=== PATIENT | male | born 1990 | race Caucasian/White ===

== ENCOUNTER 2016-11-10 08:42 | Emergency (ER) | payer OTHER ==
[2016-11-10 10:09] LABS: HEMOGLOBIN 15.3 gm/dl (14.0-17.5); RED BLOOD COUNT 4.95 M/UL (4.20-5.50); WHITE BLOOD COUNT 10.2 K/UL (4.5-11.0)
[2016-11-10 10:39] LABS: BUN/CREATININE RATIO 14 (0-10)
== END 2016-11-10 13:52 | disposition home or self-care (01) ==
LOC: ER1 08:42
PROVIDERS: Physician Assistant
DX: S01.01XA Laceration without foreign body of scalp, initial encounter (principal); S16.1XXA Strain of muscle, fascia and tendon at neck level, initial encounter; S50.312A Abrasion of left elbow, initial encounter; S80.212A Abrasion, left knee, initial encounter; S40.812A Abrasion of left upper arm, initial encounter; V86.59XA Driver of other special all-terrain or other off-road motor vehicle injured in nontraffic accident, initial encounter; Y93.89 Activity, other specified
CPT/HCPCS: 36415; 70450; 71020; 71260; 72125; 73030; 73060; 73080; 73552; 73562; 80053; 81001; 82550; 82553; 83874; 84484; 85025; 93005; 96361; 96374; 96375; 99284; J2270; J2405; J7050; Q9962